=== PATIENT | female | born 1950 | race Caucasian/White ===

== ENCOUNTER 2017-07-31 10:05 | Emergency (ER) | payer OTHER ==
[~2017-07-31] VITALS: Ht 157.5 cm; Wt 95.3 kg
[~2017-07-31 10:05] MED LIST: FLEXERIL10 MG PO; PREDNISONE10 MG PO; ULTRAM50 MG PO
[2017-07-31] MEDS ORDERED: PREDNISONE20 MG PO (10:38)
[2017-07-31] MEDS ORDERED: NORCO 5/3251 TABLET PO (10:38)
[2017-07-31 10:56] VITALS: BP 134/74
== END 2017-07-31 10:56 | disposition home or self-care (01) ==
LOC: EME 10:05
DX: M54.5 Low back pain (principal); J45.909 Unspecified asthma, uncomplicated; F32.9 Major depressive disorder, single episode, unspecified; K21.9 Gastro-esophageal reflux disease without esophagitis; Z96.649 Presence of unspecified artificial hip joint; Z88.6 Allergy status to analgesic agent; Z91.040 Latex allergy status
CPT/HCPCS: 99281; 99283; J7512